=== PATIENT | female | born 1975 | race Caucasian/White ===

== ENCOUNTER 2017-08-31 07:29 | Emergency (ER) | payer OTHER, MEDICAID ==
[~2017-08-31] VITALS: Ht 154.9 cm; Wt 71.7 kg
[~2017-08-31 07:29] MED LIST: ALBU6.7H INH; PRED20 PO; ZITH250T PO
[2017-08-31 07:30] VITALS: BP 129/84; PULSE 80; RESP 16; TEMP 97.8; O2SAT 98
[2017-08-31] MEDS ORDERED: IOHEXOL 350 MG/ML 10 ML VIAL (for RAD DIAG) IVCONTRAST ONE (07:30)
[2017-08-31] MEDS ORDERED: SODIUM CHLORIDE 0.9% FLUSH 10 ML FLUSH IV FLUSH PRN (07:45)
[2017-08-31] MEDS ORDERED: ONDANSETRON HCL 4 MG/2 ML VIAL IVP ONE (07:45)
[2017-08-31] MEDS ORDERED: KETOROLAC TROMETHAMINE 30 MG/ML (IVP) VIAL IVP ONE (07:45)
[2017-08-31] MEDS ORDERED: SODIUM CHLOR 0.9% 1000 ML INJ 1,000 ML IV SCH (07:45)
[2017-08-31] MEDS ORDERED: CEPH-459 PO (07:49)
[2017-08-31] MEDS ORDERED: birth control (07:49)
--- NOTE | 2017-08-31 07:52 | PD ---
HPI Chief Complaint: Musculoskeletal Complaint Time Seen by Provider: 07:35 Travel History International Travel<30 days: No Contact w/Intl Traveler<30days: No Traveled to known affect area: No History of Present Illness HPI The patient is a 41-year-old female who presents to the emergency department for left lower quadrant pain and left groin pain of several days' duration. The patient states she underwent bladder surgery with a sling that was performed at the [facility] at the end of July. The patient states they went through her section scar, she currently has packing in place and has been treated with Keflex. The patient also saw her ap operator, Dr. Webb, in the middle of August and the patient apparently had a normal gynecologic exam. The patient states she was walking around [place] several days ago when she developed left lower quadrant pain. However, the pain is intermittent, can be present at rest as well as when she rolls onto her left side. She did complain of nausea with the pain but denies any vomiting. She did have an episode of diarrhea yesterday which she describes as loose. She denies any dysuria, frequency, urgency, vaginal discharge, or vaginal bleeding. The patient has a history of tubal ligation and denies . She denies any significant redness around the packing site and denies any significant increase in drainage. Symptoms are moderate, there are no current alleviating or exacerbating factors. She also states she can move her left lower extremity at rest and this does not exacerbate her pain. PFSH Past Medical History Asthma: Yes ( A CHILD) Diabetes: No Diminished Hearing: No Genitourinary: Yes (POLYCYSTIC KIDNEYS, UTI'S, KIDNEY STONES) Immunizations Current: Yes ?: Not LMP: 08/21/17 : 1 Para: 1 Ovarian Cysts: Yes Past Surgical History Appendectomy: Yes (2004) Section: Yes Genitourinary Surgery: Yes (bladder sling 07/21) Gynecologic Surgery: Yes () Oral Surgery: Yes (WISDOM TEETH) Social History Alcohol Use: Yes () Tobacco Use: Yes (1 pack every 2 weeks) Substance Use: No Allergies-Medications (Allergen,Severity, Reaction): Coded Allergies: hydrocodone (Unverified Allergy, Severe, ITCHING, 08/31/17) Reported Meds & Prescriptions Reported Meds & Active Scripts Active Reported Keflex (Cephalexin) 250 Mg Cap 250 Mg PO Q6H [ control] Review of Systems Except as stated in HPI: all other systems reviewed are Neg General / Constitutional: No: Fever, Chills Gastrointestinal: Positive: Nausea, Diarrhea, Abdominal Pain, No: Vomiting Genitourinary: Positive: Pelvic Pain, No: Urgency, Frequency, Dysuria, Hematuria, Discharge, Vaginal Bleeding Physical Exam Narrative GENERAL: Awake, alert, pleasant 41-year-old female who appears her stated age and is in no acute respiratory distress. SKIN: Focused skin assessment warm/dry. HEAD: Atraumatic. Normocephalic. EYES: Pupils equal and round. No scleral icterus. No injection or drainage. ENT: No nasal bleeding or discharge. Mucous membranes pink and moist. NECK: Trachea midline. No JVD. CARDIOVASCULAR: Regular rate and rhythm. No murmur appreciated. RESPIRATORY: No accessory muscle use. Clear to auscultation. Breath sounds equal bilaterally. GASTROINTESTINAL: Exam was performed in the presence of a female nurse. Abdomen soft, mild tenderness left lower quadrant but no guarding or rigidity. Midline scar noted with packing in place but no surrounding erythema or drainage noted. No palpable abscess or large seroma/hematoma. No significant left inguinal lymphadenopathy noted on palpation. MUSCULOSKELETAL: No obvious deformities. No clubbing. No cyanosis. No edema. NEUROLOGICAL: Awake and alert. No obvious cranial nerve deficits. Motor grossly within normal limits. Normal speech. PSYCHIATRIC: Appropriate mood and affect; insight and judgment normal. Data Data Last Documented VS Vital Signs Date Time Temp Pulse Resp B/P (MAP) Pulse Ox O2 Delivery O2 Flow Rate FiO2 08/31/17 09:00 74 16 135/76 (95) 98 Room Air 08/31/17 07:30 97.8 Orders Orders Complete Blood Count With Diff (08/31/17 07:45) Comprehensive Metabolic Panel (08/31/17 07:45) Urinalysis - C+S If Indicated (08/31/17 07:45) Ct Abd/Pel W Iv Contrast(Rout) (08/31/17 07:45) Iv Access Insert/Monitor (08/31/17 07:45) Ecg Monitoring (08/31/17 07:45) Oximetry (08/31/17 07:45) Ondansetron Inj (Zofran Inj) (08/31/17 07:45) Sodium Chlor 0.9% 1000 Ml Inj (Ns 1000 M (08/31/17 07:45) Sodium Chloride 0.9% Flush (Ns Flush) (08/31/17 07:45) Ketorolac Inj (Toradol Inj) (08/31/17 07:45) Ed Urine Pregnancytest Poc (08/31/17 07:45) Urine Culture (08/31/17 08:06) Iohexol 350 Inj (Omnipaque 350 Inj) (08/31/17 07:30) Labs Laboratory Tests Test 08/31/17 08:06 White Blood Count 4.8 TH/MM3 Red Blood Count 3.94 MIL/MM3 Hemoglobin 11.6 GM/DL Hematocrit 35.4 % Mean Corpuscular Volume 89.8 FL Mean Corpuscular Hemoglobin 29.3 PG Mean Corpuscular Hemoglobin Concent 32.7 % Red Cell Distribution Width 11.7 % Platelet Count 255 TH/MM3 Mean Platelet Volume 9.1 FL Neutrophils (%) (Auto) 54.4 % Lymphocytes (%) (Auto) 34.0 % Monocytes (%) (Auto) 7.4 % Eosinophils (%) (Auto) 3.3 % Basophils (%) (Auto) 0.9 % Neutrophils # (Auto) 2.6 TH/MM3 Lymphocytes # (Auto) 1.6 TH/MM3 Monocytes # (Auto) 0.4 TH/MM3 Eosinophils # (Auto) 0.2 TH/MM3 Basophils # (Auto) 0.0 TH/MM3 CBC Comment DIFF FINAL Differential Comment Urine Color YELLOW Urine Turbidity CLEAR Urine pH 7.5 Urine Specific [place] 1.019 Urine Protein NEG mg/dL Urine Glucose (UA) NEG mg/dL Urine Ketones NEG mg/dL Urine Occult Blood NEG Urine Nitrite NEG Urine Bilirubin NEG Urine Leukocyte Esterase SMALL Urine RBC 0-3 /hpf Urine WBC 9-14 /hpf Urine Squamous Epithelial Cells 0-5 /hpf Urine Bacteria FEW /hpf Microscopic Urinalysis Comment CULTURE INDICATED Blood Urea Nitrogen 16 MG/DL Creatinine 0.74 MG/DL Random Glucose 90 MG/DL Total Protein 6.7 GM/DL Albumin 3.3 GM/DL Calcium Level 8.7 MG/DL Alkaline Phosphatase 65 U/L Aspartate Amino Transf (AST/SGOT) 13 U/L Alanine Aminotransferase (ALT/SGPT) 18 U/L Total Bilirubin 0.3 MG/DL Sodium Level 138 MEQ/L Potassium Level 4.1 MEQ/L Chloride Level 107 MEQ/L Carbon Dioxide Level 25.2 MEQ/L Anion Gap 6 MEQ/L Estimat Glomerular Filtration Rate 87 ML/MIN [facility] Medical Decision Making Medical Screen Exam Complete: Yes Emergency Medical Condition: Yes Medical Record Reviewed: Yes Interpretation(s) Last Impressions Abdomen/Pelvis CT 08/31/17 0745 Signed Impressions: Service Date/Time: August 08:17 - CONCLUSION: 1. Innumerable hepatic and renal cortical cyst the bilateral renal enlargement characteristic of polycystic kidney disease. 2. 2 nonobstructing calculi in the right renal collecting system. The largest at the junction of the mid and lower pole measure 6 mm in diameter. 3. Radiopaque density traversing the right para midline subcutaneous tissues of the lower abdomen just above the pubic symphysis. There are regional inflammatory changes around the density and this may represent postoperative packing. Please correlate with clinical history. 4. Otherwise, no acute intraperitoneal or pelvic process to explain current clinical symptoms. Real Negro MD Laboratory Tests Test 08/31/17 08:06 White Blood Count 4.8 TH/MM3 Red Blood Count 3.94 MIL/MM3 Hemoglobin 11.6 GM/DL Hematocrit 35.4 % Mean Corpuscular Volume 89.8 FL Mean Corpuscular Hemoglobin 29.3 PG Mean Corpuscular Hemoglobin Concent 32.7 % Red Cell Distribution Width 11.7 % Platelet Count 255 TH/MM3 Mean Platelet Volume 9.1 FL Neutrophils (%) (Auto) 54.4 % Lymphocytes (%) (Auto) 34.0 % Monocytes (%) (Auto) 7.4 % Eosinophils (%) (Auto) 3.3 % Basophils (%) (Auto) 0.9 % Neutrophils # (Auto) 2.6 TH/MM3 Lymphocytes # (Auto) 1.6 TH/MM3 Monocytes # (Auto) 0.4 TH/MM3 Eosinophils # (Auto) 0.2 TH/MM3 Basophils # (Auto) 0.0 TH/MM3 CBC Comment DIFF FINAL Differential Comment Urine Color YELLOW Urine Turbidity CLEAR Urine pH 7.5 Urine Specific [place] 1.019 Urine Protein NEG mg/dL Urine Glucose (UA) NEG mg/dL Urine Ketones NEG mg/dL Urine Occult Blood NEG Urine Nitrite NEG Urine Bilirubin NEG Urine Leukocyte Esterase SMALL Urine RBC 0-3 /hpf Urine WBC 9-14 /hpf Urine Squamous Epithelial Cells 0-5 /hpf Urine Bacteria FEW /hpf Microscopic Urinalysis Comment CULTURE INDICATED Blood Urea Nitrogen 16 MG/DL Creatinine 0.74 MG/DL Random Glucose 90 MG/DL Total Protein 6.7 GM/DL Albumin 3.3 GM/DL Calcium Level 8.7 MG/DL Alkaline Phosphatase 65 U/L Aspartate Amino Transf (AST/SGOT) 13 U/L Alanine Aminotransferase (ALT/SGPT) 18 U/L Total Bilirubin 0.3 MG/DL Sodium Level 138 MEQ/L Potassium Level 4.1 MEQ/L Chloride Level 107 MEQ/L Carbon Dioxide Level 25.2 MEQ/L Anion Gap 6 MEQ/L Estimat Glomerular Filtration Rate 87 ML/MIN Differential Diagnosis Differential diagnosis includes postoperative abscess, ovarian cyst, ovarian torsion, pyelonephritis, nephrolithiasis, diverticulitis, colitis, inguinal strain, femoral hernia. Narrative Course IV was established, labs are drawn and sent, and the patient was placed on cardiac telemetry monitoring and continuous pulse oximetry monitoring. The patient was administered Toradol, Zofran, and IV fluids. Bedside UA test was obtained and UA was sent to lab. CT of the abdomen and pelvis with IV contrast was obtained to rule out postoperative abscess. Bedside UA test was negative. UA reveals 14 wbc's and leukocyte esterase, patient will be treated for possible UTI. The patient's white count is unremarkable. CT the abdomen and pelvis reveals polycystic kidney disease and packing in place in the midline just above the pelvis. There are no significant inflammatory changes noted on the skin or erythema noted around the packing. I had a discussion with the patient regarding polycystic kidney disease, she has a known history of polycystic kidney disease. Other possibilities of the patient' s pain could be ovarian cyst versus mittelschmerz. The patient will be treated with Bactrim for 3 days for possible underlying UTI. She will be provided a copy of her CT results and lab results at discharge. She is advised to follow- up with her primary physician as well as her surgeons at the [facility]. Return if symptoms worsen or progress. Diagnosis Primary Impression: Abdominal pain Qualified Codes: R10.32 - Left lower quadrant pain Additional Impression: UTI (urinary tract infection) Qualified Codes: N30.00 - Acute cystitis without hematuria Patient Instructions: General Instructions Additional Instructions: Bactrim as directed for 3 days. Please provide the patient a copy of her CT results and lab results at discharge. Follow-up with your primary physician and your surgeon at the [facility]. Return if symptoms worsen or progress. Med/Other Pt SpecificInfo: Prescription(s) given Scripts Sulfamethoxazole-Trimethoprim (Bactrim DS) 800-160 Mg Tab 1 TAB PO BID for Infection, #6 TAB 0 Refills Prov: Diego Mcelroy MD 08/31/17 Disposition: DISCHARGE HOME Condition: Stable Diego Mcelroy MD Aug 31, 2017 07:52
[2017-08-31 08:11] LABS: AUTOMATED NEUTROPHIL # 2.6 TH/MM3 (1.8-7.7); BASOPHIL % 0.9 % (0.0-2.0); EOSINOPHIL # 0.2 TH/MM3 (0-0.4); EOSINOPHIL % 3.3 % (0.0-4.0); HEMATOCRIT 35.4 % (35.0-46.0); HEMOGLOBIN 11.6 GM/DL (11.6-15.3); LYMPHOCYTE # 1.6 TH/MM3 (1.0-4.8); MEAN CELL VOLUME 89.8 FL (80.0-100.0); MEAN CORPUSCULAR HEMOGLOBIN 29.3 PG (27.0-34.0); MEAN CORPUSCULAR HGB CONC 32.7 % (32.0-36.0); MEAN PLATELET VOLUME 9.1 FL (7.0-11.0); MONO % 7.4 % (0.0-8.0); MONOCYTE # 0.4 TH/MM3 (0-0.9); NEUT % 54.4 % (16.0-70.0); PLATELET COUNT 255 TH/MM3 (150-450); RED BLOOD COUNT 3.94 MIL/MM3 (4.00-5.30); RED CELL DISTRIBUTION WIDTH 11.7 % (11.6-17.2); WHITE BLOOD COUNT 4.8 TH/MM3 (4.0-11.0)
[2017-08-31 08:22] LABS: BILIRUBIN, URINE NEG (NEG); BLOOD, URINE NEG (NEG); GLUCOSE,URINE NEG (NEG); KETONE, URINE NEG (NEG); NITRITE,URINE NEG (NEG); PH, URINE 7.5 (5.0-8.5); URINE LEUKOCYTE ESTERASE SMALL (NEG)
[2017-08-31 08:26] LABS: CHLORIDE 107 MEQ/L (98-107); SODIUM (NA) 138 MEQ/L (136-145)
[2017-08-31 08:27] LABS: URINE COLOR YELLOW (YELLW/STRAW)
[2017-08-31 08:28] LABS: BACTERIA, URINE FEW /hpf; RBC, URINE 0-3 /hpf (0-3); SQUAMOUS EPITHELIAL CELL URINE 0-5 /hpf (0-5)
[2017-08-31 08:29] LABS: CALCIUM 8.7 MG/DL (8.5-10.1)
[2017-08-31 08:30] LABS: ALBUMIN 3.3 GM/DL (3.4-5.0); BICARBONATE 25.2 MEQ/L (21.0-32.0); BLOOD UREA NITROGEN 16 MG/DL (7-18); GLUCOSE,RANDOM 90 MG/DL (74-106)
[2017-08-31 08:33] LABS: ALT (GPT) 18 U/L (10-53); AST (GOT) 13 U/L (15-37); CREATININE 0.74 MG/DL (0.50-1.00); GLOMERULAR FILTRATION RATE 87 ML/MIN (>89)
[2017-08-31 08:35] LABS: TOTAL BILIRUBIN ADULT 0.3 MG/DL (0.2-1.0); TOTAL PROTEIN 6.7 GM/DL (6.4-8.2)
[2017-08-31 08:36] LABS: ALKALINE PHOSPHATASE 65 U/L (45-117)
--- NOTE | 2017-08-31 08:57 | RADRPT ---
EXAM DATE/TIME: 08/31/2017 08:17 [facility] COMPARISON: No previous studies available for comparison. INDICATIONS : Left lower quadrant pain, recent bladder surgery. IV CONTRAST: 90 cc Omnipaque 350 (iohexol) IV ORAL CONTRAST: No oral contrast ingested. RADIATION DOSE: 8.97 CTDIvol (mGy) MEDICAL HISTORY : Renal calculi. Polycystic kidney disease, ovarian cysts. SURGICAL HISTORY : Appendectomy. section.Tubal ligation.Bladder surgery with sling. ENCOUNTER: Initial ACUITY: 4 - 6 days PAIN SCALE: 4/10 LOCATION: Left lower quadrant TECHNIQUE: Volumetric scanning of the abdomen and pelvis was performed. Using automated exposure control and ad justment of the mA and/or kV according to patient size, radiation dose was kept as low as reasonably achievable to obtain optimal diagnostic quality images. DICOM format image data is available electro nically for review and comparison. FINDINGS: LOWER LUNGS: The visualized lower lungs are clear. LIVER: Innumerable cysts throughout the hepatic parenchyma. There is no dilation of the biliary tree. No c alcified gallstones. SPLEEN: Normal size without lesion. PANCREAS: Within normal limits. KIDNEYS: Both kidneys are enlarged with multiple bilateral cortical cysts. Nonobstructing calculi are seen in the right renal collecting system the largest measuring approximately 6 mm midpole. There is no mass or hydronephrosis. ADRENAL GLANDS: Within normal limits. VASCULAR: There is no aortic aneurysm. BOWEL/MESENTERY: The stomach, small bowel, and colon demonstrate no acute abnormality. There is no free intraperitone al air or fluid. ABDOMINAL WALL: Radiodense material traverses the subcutaneous tissues of the lower right para midline abdomen just a franc the pubic symphysis and extends to the skin surface. There are regional inflammatory changes and this is felt to be postoperative packing. RETROPERITONEUM: There is no lymphadenopathy. BLADDER: No wall thickening or mass. REPRODUCTIVE: Within normal limits. INGUINAL: There is no lymphadenopathy or hernia. MUSCULOSKELETAL: Within normal limits for patient age. CONCLUSION: 1. Innumerable hepatic and renal cortical cyst the bilateral renal enlargement characteristic of poly cystic kidney disease. 2. 2 nonobstructing calculi in the right renal collecting system. The largest at the junction of the mid and lower pole measure 6 mm in diameter. 3. Radiopaque density traversing the right para midline subcutaneous tissues of the lower abdomen jus t above the pubic symphysis. There are regional inflammatory changes around the density and this may represent postoperative packing. Please correlate with clinical history. 4. Otherwise, no acute intraperitoneal or pelvic process to explain current clinical symptoms. Real Negro MD on August 31, 2017 at 8:47 Board Certified Radiologist. This report was verified electronically.
[2017-08-31 08:58] VITALS: O2SAT 98
[2017-08-31 09:00] VITALS: BP 135/76; PULSE 74; RESP 16; O2SAT 98
[2017-08-31] MEDS ORDERED: BACT800T5 PO (09:12)
== END 2017-08-31 09:26 | disposition home or self-care (01) ==
LOC: PHED 07:29
DX: R10.32 Left lower quadrant pain (principal); N30.00 Acute cystitis without hematuria; R19.7 Diarrhea, unspecified; R11.0 Nausea; Z72.0 Tobacco use
CPT/HCPCS: 74177; 80053; 81001; 84703; 85025; 87086; 96361; 96374; 96375; 99285; J1885; J2405; J7030; Q9967

== ENCOUNTER 2018-01-06 18:56 | Emergency (ER) | payer MEDICAID, OTHER ==
[~2018-01-06] VITALS: Ht 154.9 cm; Wt 71.8 kg
[~2018-01-06 18:56] MED LIST changes: -ALBU6.7H INH; +BACT800T5 PO; +CEPH-459 PO; -PRED20 PO; -ZITH250T PO; +birth control
[2018-01-06 18:59] VITALS: BP 178/103; PULSE 67; RESP 18; TEMP 97.8; O2SAT 99
[2018-01-06] MEDS ORDERED: SUMA100T2 PO (19:18)
[2018-01-06] MEDS ORDERED: DIFL150T PO (19:18)
[2018-01-06] MEDS ORDERED: METR-1 PO (19:18)
[2018-01-06] MEDS ORDERED: DULO1CAP2 PO (19:18)
[2018-01-06] MEDS ORDERED: TRINTAB7 PO (19:18)
[2018-01-06 19:26] VITALS: PULSE 77; O2SAT 100
[2018-01-06] MEDS ORDERED: SODIUM CHLOR 0.9% 1000 ML INJ 1,000 ML IV ONE (19:55)
--- NOTE | 2018-01-06 19:55 | PD ---
HPI Chief Complaint: Headache Time Seen by Provider: 19:39 Travel History International Travel<30 days: No Contact w/Intl Traveler<30days: No Traveled to known affect area: No History of Present Illness HPI The patient is a 42-year-old female that states she has had headaches for 5 years. She recently saw Dr. Hill and a CT of the brain was recommended. She has not done this yet. She denies any fever, vomiting but does have nausea and photophobia/phonophobia. She claims a headache is a 10/10. The headache is bilateral, mainly bifrontal and of gradual onset. She denies any focal neurologic change. She denies any fever. She was given sumatriptan and and took that at 3:00 this morning and 11:00 this morning but this has not helped. She states there is no possibility of . She takes control pills for her cyst and has had a tubal ligation. She also states she is on her menstrual period. She states she has been on her control pills for 4 years and cannot make any connection between her headaches and the control pills. [facility] Past Medical History Asthma: Yes ( A CHILD) Diabetes: No Diminished Hearing: No Genitourinary: Yes (POLYCYSTIC KIDNEYS, UTI'S, KIDNEY STONES) Immunizations Current: Yes Migraines: Yes Tetanus Vaccination: < 5 Years Influenza Vaccination: Yes ?: Not LMP: NOW : 2 Para: 2 Ovarian Cysts: Yes Tubal Ligation: Yes (2013) Past Surgical History Appendectomy: Yes (2004) Section: Yes (X2) Genitourinary Surgery: Yes (bladder sling 07/21) Gynecologic Surgery: Yes () Oral Surgery: Yes (WISDOM TEETH) Social History Alcohol Use: Yes (OCCAS) Tobacco Use: Yes (1 pack every 2 weeks) Substance Use: No Allergies-Medications (Allergen,Severity, Reaction): Coded Allergies: hydrocodone (Unverified Allergy, Severe, ITCHING, 01/06/18) Reported Meds & Prescriptions Reported Meds & Active Scripts Active Reported Diflucan (Fluconazole) 150 Mg Tab 150 Mg PO ONCE Flagyl (Metronidazole) 500 Mg Tab 500 Mg PO BID Trinessa (Norgestimate-Ethinyl Estradiol) 0.18/0.215/0.25 mg-35 Mcg Tab 1 Tab PO DAILY Duloxetine DR (Duloxetine HCl) 30 Mg Capdr 30 Mg PO DAILY Sumatriptan (Sumatriptan Succinate) 100 Mg Tab 100 Mg PO BID If a satisfactory response has not been obtained at 2 hours, a second dose may be administered Review of Systems Except as stated in HPI: all other systems reviewed are Neg Physical Exam Narrative GENERAL: The patient is alert, oriented 3 in moderate apparent distress with her bifrontal headache. Her vital signs show blood pressure 178/103 but are otherwise normal. SKIN: Focused skin assessment warm/dry. HEAD: Atraumatic. Normocephalic. EYES: Pupils equal and round. No scleral icterus. No injection or drainage. The fundi appear sharp and venous pulsations are seated in the upright position. ENT: No nasal bleeding or discharge. Mucous membranes pink and moist. NECK: Trachea midline. No JVD. The patient has no meningismus that can flex neck fully so that the chin touches the chest. CARDIOVASCULAR: Regular rate and rhythm. No murmur appreciated. RESPIRATORY: No accessory muscle use. Clear to auscultation. Breath sounds equal bilaterally. GASTROINTESTINAL: Abdomen soft, non-tender, nondistended. Hepatic and splenic margins not palpable. MUSCULOSKELETAL: No obvious deformities. No clubbing. No cyanosis. No edema. NEUROLOGICAL: Awake and alert. No obvious cranial nerve deficits. Motor grossly within normal limits. Normal speech. PSYCHIATRIC: Appropriate mood and affect; insight and judgment normal. Data Data Last Documented VS Vital Signs Date Time Temp Pulse Resp B/P (MAP) Pulse Ox O2 Delivery O2 Flow Rate FiO2 01/06/18 20:34 61 16 147/81 (103) 100 Room Air 01/06/18 18:59 97.8 Orders Orders Complete Blood Count With Diff (01/06/18 19:55) Comprehensive Metabolic Panel (01/06/18 19:55) Ct Brain W/O Iv Contrast(Rout) (01/06/18 19:55) Ecg Monitoring (01/06/18 19:55) Iv Access Insert/Monitor (01/06/18 19:55) Oximetry (01/06/18 19:55) Sodium Chloride 0.9% Flush (Ns Flush) (01/06/18 20:00) Ketorolac Inj (Toradol Inj) (01/06/18 20:00) Prochlorperazine Inj (Compazine Inj) (01/06/18 20:00) Diphenhydramine Inj (Benadryl Inj) (01/06/18 20:00) Sodium Chlor 0.9% 1000 Ml Inj (Ns 1000 M (01/06/18 19:55) Labs Laboratory Tests Test 01/06/18 19:54 White Blood Count 7.6 TH/MM3 Red Blood Count 4.36 MIL/MM3 Hemoglobin 13.0 GM/DL Hematocrit 38.0 % Mean Corpuscular Volume 87.1 FL Mean Corpuscular Hemoglobin 29.9 PG Mean Corpuscular Hemoglobin Concent 34.3 % Red Cell Distribution Width 12.1 % Platelet Count 234 TH/MM3 Mean Platelet Volume 9.7 FL Neutrophils (%) (Auto) 58.5 % Lymphocytes (%) (Auto) 28.1 % Monocytes (%) (Auto) 8.0 % Eosinophils (%) (Auto) 2.7 % Basophils (%) (Auto) 2.7 % Neutrophils # (Auto) 4.5 TH/MM3 Lymphocytes # (Auto) 2.1 TH/MM3 Monocytes # (Auto) 0.6 TH/MM3 Eosinophils # (Auto) 0.2 TH/MM3 Basophils # (Auto) 0.2 TH/MM3 CBC Comment DIFF FINAL Differential Comment Blood Urea Nitrogen 15 MG/DL Creatinine 0.88 MG/DL Random Glucose 103 MG/DL Total Protein 7.0 GM/DL Albumin 3.4 GM/DL Calcium Level 9.1 MG/DL Alkaline Phosphatase 68 U/L Aspartate Amino Transf (AST/SGOT) 12 U/L Alanine Aminotransferase (ALT/SGPT) 16 U/L Total Bilirubin 0.3 MG/DL Sodium Level 140 MEQ/L Potassium Level 4.0 MEQ/L Chloride Level 106 MEQ/L Carbon Dioxide Level 29.2 MEQ/L Anion Gap 5 MEQ/L Estimat Glomerular Filtration Rate 71 ML/MIN [facility] Medical Decision Making Medical Screen Exam Complete: Yes Emergency Medical Condition: Yes Medical Record Reviewed: Yes Interpretation(s) The CBC is normal. The complete metabolic profile shows a GFR of 71 but is otherwise unremarkable. The CT brain shows no acute disease. Differential Diagnosis Migraine headache, tension headache, tension/migraine combination headache, cluster headache, subarachnoid hemorrhage-highly unlikely Narrative Course The patient likely has a tension/migraine combination headache. She should follow-up next week with a neurologist. She is given the laboratory results/ imaging that we did tonight. She will be given a prescription for Fioricet. It is now 8:45 PM and the patient's headache is completely resolved. Diagnosis Primary Impression: Recurrent headache Additional Instructions: As we discussed, he will likely need to see a neurologist next week. Take the laboratory/imaging results that we gave you to his office. The Fioricet is 1 or 2 capsules every 6 hours as needed for headache. Ibuprofen and Benadryl also appeared to work for this headache. Med/Other Pt SpecificInfo: Prescription(s) given Scripts Pwkhhcocdy-Tizbxadradusm-Upafhrcf (Fioricet) 50-300-40 Mg Cap 1-2 CAP PO Q6H Y for HEADACHE, #30 CAP 0 Refills Prov: Santiago Boone MD 01/06/18 Disposition: 01 DISCHARGE HOME Condition: Stable Santiago Boone MD January 06, 2018 19:55
[2018-01-06] MEDS ORDERED: diphenhydrAMINE HCL 50 MG/ML VIAL IVP ONE (20:00)
[2018-01-06] MEDS ORDERED: KETOROLAC TROMETHAMINE 30 MG/ML (IVP) VIAL IVP ONE (20:00)
[2018-01-06] MEDS ORDERED: SODIUM CHLORIDE 0.9% FLUSH 10 ML FLUSH IVF PRN (20:00)
[2018-01-06] MEDS ORDERED: PROCHLORPERAZINE INJ 10 MG/2 ML VIAL IVP ONE (20:00)
[2018-01-06 20:19] LABS: AUTOMATED NEUTROPHIL # 4.5 TH/MM3 (1.8-7.7); BASOPHIL # 0.2 TH/MM3 (0-0.2); BASOPHIL % 2.7 % (0.0-2.0); EOSINOPHIL # 0.2 TH/MM3 (0-0.4); EOSINOPHIL % 2.7 % (0.0-4.0); LYMPH % 28.1 % (9.0-44.0); LYMPHOCYTE # 2.1 TH/MM3 (1.0-4.8); MEAN CELL VOLUME 87.1 FL (80.0-100.0); MEAN CORPUSCULAR HEMOGLOBIN 29.9 PG (27.0-34.0); MEAN CORPUSCULAR HGB CONC 34.3 % (32.0-36.0); MEAN PLATELET VOLUME 9.7 FL (7.0-11.0); MONOCYTE # 0.6 TH/MM3 (0-0.9); NEUT % 58.5 % (16.0-70.0); PLATELET COUNT 234 TH/MM3 (150-450); RED BLOOD COUNT 4.36 MIL/MM3 (4.00-5.30); RED CELL DISTRIBUTION WIDTH 12.1 % (11.6-17.2); WHITE BLOOD COUNT 7.6 TH/MM3 (4.0-11.0)
[2018-01-06 20:26] LABS: CHLORIDE 106 MEQ/L (98-107); SODIUM (NA) 140 MEQ/L (136-145)
[2018-01-06 20:29] LABS: ALBUMIN 3.4 GM/DL (3.4-5.0); BICARBONATE 29.2 MEQ/L (21.0-32.0); CALCIUM 9.1 MG/DL (8.5-10.1); GLUCOSE,RANDOM 103 MG/DL (74-106)
[2018-01-06 20:30] LABS: BLOOD UREA NITROGEN 15 MG/DL (7-18)
[2018-01-06 20:32] LABS: ALT (GPT) 16 U/L (10-53); AST (GOT) 12 U/L (15-37)
--- NOTE | 2018-01-06 20:32 | RADRPT ---
EXAM DATE/TIME: 01/06/2018 20:21 [facility] COMPARISON: No previous studies available for comparison. INDICATIONS : Cephalgia and nausea x 2 days. RADIATION DOSE: 46.83 CTDIvol (mGy) MEDICAL HISTORY : Renal calculi. Polycystic renal disease. SURGICAL HISTORY : section. Appendectomy. ENCOUNTER: Initial ACUITY: 2 days PAIN SCALE: 7/10 LOCATION: cranial TECHNIQUE: Multiple contiguous axial images were obtained of the head. Using automated exposure control and adj ustment of the mA and/or kV according to patient size, radiation dose was kept as low as reasonably a chievable to obtain optimal diagnostic quality images. DICOM format image data is available electro nically for review and comparison. FINDINGS: CEREBRUM: The ventricles are normal for age. No evidence of midline shift, mass lesion, hemorrhage or acute in farction. No extra-axial fluid collections are seen. POSTERIOR FOSSA: The cerebellum and brainstem are intact. The 4th ventricle is midline. The cerebellopontine angle i s unremarkable. EXTRACRANIAL: The visualized portion of the orbits is intact. SKULL: The calvaria is intact. No evidence of skull fracture. CONCLUSION: No acute disease. Eyad Arvizu MD on January 06, 2018 at 20:29 Board Certified Radiologist. This report was verified electronically.
[2018-01-06 20:33] LABS: CREATININE 0.88 MG/DL (0.50-1.00); GLOMERULAR FILTRATION RATE 71 ML/MIN (>89)
[2018-01-06 20:34] VITALS: BP 147/81; PULSE 61; RESP 16; O2SAT 100
[2018-01-06 20:34] LABS: TOTAL BILIRUBIN ADULT 0.3 MG/DL (0.2-1.0)
[2018-01-06 20:35] LABS: ALKALINE PHOSPHATASE 68 U/L (45-117)
[2018-01-06] MEDS ORDERED: BUTA1CAP PO (20:42)
== END 2018-01-06 21:18 | disposition home or self-care (01) ==
LOC: PHED 18:56
DX: R51 Headache (principal); Q61.3 Polycystic kidney, unspecified; F17.200 Nicotine dependence, unspecified, uncomplicated
CPT/HCPCS: 70450; 80053; 85025; 96361; 96374; 96375; 99284; J0780; J1200; J1885; J7030

== ENCOUNTER 2018-01-17 16:50 | Emergency (ER) | payer OTHER ==
[~2018-01-17] VITALS: Ht 154.9 cm; Wt 70.0 kg
[~2018-01-17 16:50] MED LIST changes: -BACT800T5 PO; +BUTA1CAP PO; -CEPH-459 PO; +DIFL150T PO; +DULO1CAP2 PO; +METR-1 PO; +SUMA100T2 PO; +TRINTAB7 PO; -birth control
[2018-01-17 16:53] VITALS: BP 134/77; PULSE 118; RESP 16; TEMP 100.3; O2SAT 98
[2018-01-17] MEDS ORDERED: PANT20 PO (17:02)
[2018-01-17] MEDS ORDERED: SODIUM CHLOR 0.9% 1000 ML INJ 1,000 ML IV SCH (17:03)
--- NOTE | 2018-01-17 17:09 | PD ---
HPI Chief Complaint: GI Complaint Time Seen by Provider: 16:56 Travel History International Travel<30 days: No Contact w/Intl Traveler<30days: No Traveled to known affect area: No History of Present Illness HPI The patient is a 42-year-old female who presents emergency department for nausea, diarrhea, abdominal pain, and body aches. The patient states her symptoms started earlier today, at [facility], when she developed diarrhea. The patient estimates 10 episodes of loose, watery, brown diarrhea without any visible blood. She then developed some lower abdominal pain and cramping that radiates to the back and into the pelvis. She now complains of body aches, subjective fevers, chills, and intermittent sweats. 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 She denies any sick contacts at home. She did receive an influenza vaccination this year. She denies any recent international travel. She denies any vomiting but does note mild nausea. Symptoms are moderate. She does have a history of polycystic kidney disease. The patient denies any dysuria, frequency , or urgency. The patient does have a history of previous appendectomy, tubal ligation, bladder sling surgery, and section. PFSH Past Medical History Asthma: Yes ( A CHILD) Diabetes: No Diminished Hearing: No Genitourinary: Yes (POLYCYSTIC KIDNEYS, UTI'S, KIDNEY STONES) Immunizations Current: Yes Migraines: Yes Influenza Vaccination: Yes ?: Not LMP: 2 WEEKS : 2 Para: 2 Ovarian Cysts: Yes Tubal Ligation: Yes (2013) Past Surgical History Appendectomy: Yes (2004) Section: Yes (X2) Genitourinary Surgery: Yes (bladder sling 07/21) Gynecologic Surgery: Yes () Oral Surgery: Yes (WISDOM TEETH) Social History Alcohol Use: Yes (OCCAS) Tobacco Use: No Substance Use: No Allergies-Medications (Allergen,Severity, Reaction): Coded Allergies: hydrocodone (Unverified Allergy, Severe, ITCHING, 01/17/18) Reported Meds & Prescriptions Reported Meds & Active Scripts Active Fioricet (Ernmnxmdsa-Eqnpveekzjmub-Vzeclmje) 50-300-40 Mg Cap 1-2 Cap PO Q6H PRN Reported Protonix (Pantoprazole Sodium) 20 Mg Tab 20 Mg PO DAILY Trinessa (Norgestimate-Ethinyl Estradiol) 0.18/0.215/0.25 mg-35 Mcg Tab 1 Tab PO DAILY Sumatriptan (Sumatriptan Succinate) 100 Mg Tab 100 Mg PO BID If a satisfactory response has not been obtained at 2 hours, a second dose may be administered Review of Systems Except as stated in HPI: all other systems reviewed are Neg General / Constitutional: Positive: Fever, Chills Cardiovascular: No: Chest Pain or Discomfort Respiratory: No: Shortness of Breath Gastrointestinal: Positive: Nausea, Diarrhea, Abdominal Pain, No: Vomiting Genitourinary: No: Dysuria Musculoskeletal: Positive: Myalgias Skin: No Rash Physical Exam Narrative GENERAL: Awake, alert, pleasant 42-year-old female who appears her stated age and is in no acute respiratory distress. SKIN: Focused skin assessment warm/dry. HEAD: Atraumatic. Normocephalic. EYES: Pupils equal and round. No scleral icterus. No injection or drainage. ENT: No nasal bleeding or discharge. Mucous membranes pink and moist. NECK: Trachea midline. No JVD. CARDIOVASCULAR: Regular, tachycardic with a heart rate of 115. RESPIRATORY: No accessory muscle use. Clear to auscultation. Breath sounds equal bilaterally. GASTROINTESTINAL: Abdomen soft, mild suprapubic tenderness and left lower quadrant and right lower quadrant tenderness. Back: No CVA tenderness. MUSCULOSKELETAL: No obvious deformities. No clubbing. No cyanosis. No edema. NEUROLOGICAL: Awake and alert. No obvious cranial nerve deficits. Motor grossly within normal limits. Normal speech. PSYCHIATRIC: Appropriate mood and affect; insight and judgment normal. Data Data Last Documented VS Vital Signs Date Time Temp Pulse Resp B/P (MAP) Pulse Ox O2 Delivery O2 Flow Rate FiO2 01/17/18 18:10 18 01/17/18 17:41 102 138/79 (98) 99 Room Air 01/17/18 16:53 100.3 Orders Orders Complete Blood Count With Diff (01/17/18 17:03) Comprehensive Metabolic Panel (01/17/18 17:03) Lipase (01/17/18 17:03) Lactic Acid (01/17/18 17:03) Urinalysis - C+S If Indicated (01/17/18 17:03) Ct Abd/Pel W Iv Contrast(Rout) (01/17/18 17:03) Iv Access Insert/Monitor (01/17/18 17:03) Ecg Monitoring (01/17/18 17:03) Oximetry (01/17/18 17:03) Sodium Chlor 0.9% 1000 Ml Inj (Ns 1000 M (01/17/18 17:03) Sodium Chloride 0.9% Flush (Ns Flush) (01/17/18 17:15) Ketorolac Inj (Toradol Inj) (01/17/18 17:15) Ondansetron Odt (Zofran Odt) (01/17/18 17:15) Acetaminophen (Tylenol) (01/17/18 17:15) Influenzae A/B Antigen (01/17/18 17:03) Iohexol 350 Inj (Omnipaque 350 Inj) (01/17/18 17:33) Labs Laboratory Tests Test 01/17/18 17:10 01/17/18 17:20 Urine Color YELLOW Urine Turbidity SL CLOUDY Urine pH 5.5 Urine Specific Driver 1.025 Urine Protein NEG mg/dL Urine Glucose (UA) NEG mg/dL Urine Ketones NEG mg/dL Urine Occult Blood SMALL Urine Nitrite NEG Urine Bilirubin NEG Urine Urobilinogen 0.2 MG/DL Urine Leukocyte Esterase NEG Urine RBC 0-3 /hpf Urine WBC 0-2 /hpf Urine Squamous Epithelial Cells 0-5 /hpf Microscopic Urinalysis Comment CULT NOT INDICATED White Blood Count 9.7 TH/MM3 Red Blood Count 4.16 MIL/MM3 Hemoglobin 12.2 GM/DL Hematocrit 36.6 % Mean Corpuscular Volume 88.0 FL Mean Corpuscular Hemoglobin 29.3 PG Mean Corpuscular Hemoglobin Concent 33.3 % Red Cell Distribution Width 11.9 % Platelet Count 184 TH/MM3 Mean Platelet Volume 9.5 FL Neutrophils (%) (Auto) 85.8 % Lymphocytes (%) (Auto) 6.2 % Monocytes (%) (Auto) 4.5 % Eosinophils (%) (Auto) 0.1 % Basophils (%) (Auto) 3.4 % Neutrophils # (Auto) 8.4 TH/MM3 Lymphocytes # (Auto) 0.6 TH/MM3 Monocytes # (Auto) 0.4 TH/MM3 Eosinophils # (Auto) 0.0 TH/MM3 Basophils # (Auto) 0.3 TH/MM3 CBC Comment AUTO DIFF Differential Total Cells Counted 100 Neutrophils % (Manual) 56 % Lymphocytes % 38 % Monocytes % 5 % Eosinophils % 1 % Neutrophils # (Manual) 5.4 TH/MM3 Differential Comment FINAL DIFF MANUAL Platelet Estimate NORMAL Platelet Morphology Comment NORMAL Red Cell Morphology Comment NORMAL Blood Urea Nitrogen 14 MG/DL Creatinine 0.80 MG/DL Random Glucose 103 MG/DL Total Protein 7.1 GM/DL Albumin 3.6 GM/DL Calcium Level 8.6 MG/DL Alkaline Phosphatase 63 U/L Aspartate Amino Transf (AST/SGOT) 12 U/L Alanine Aminotransferase (ALT/SGPT) 22 U/L Total Bilirubin 0.6 MG/DL Sodium Level 136 MEQ/L Potassium Level 3.2 MEQ/L Chloride Level 104 MEQ/L Carbon Dioxide Level 26.1 MEQ/L Anion Gap 6 MEQ/L Estimat Glomerular Filtration Rate 79 ML/MIN Lactic Acid Level 1.0 mmol/L Lipase 109 U/L MDM Medical Decision Making Medical Screen Exam Complete: Yes Emergency Medical Condition: Yes Medical Record Reviewed: Yes Interpretation(s) Date/Time Source Procedure Growth Status 01/17/18 17:15 Nasal Aspirate Influenza Types A,B Antigen (STEVIE) - Final NEGATIVE FOR FLU A AND B ANTIGEN.... Complete CT of the abdomen and pelvis reveals polycystic kidney and liver disease. No etiology for patient's abdominal pain. No evidence of colitis. Laboratory Tests Test 01/17/18 17:10 01/17/18 17:20 Urine Color YELLOW Urine Turbidity SL CLOUDY Urine pH 5.5 Urine Specific Driver 1.025 Urine Protein NEG mg/dL Urine Glucose (UA) NEG mg/dL Urine Ketones NEG mg/dL Urine Occult Blood SMALL Urine Nitrite NEG Urine Bilirubin NEG Urine Urobilinogen 0.2 MG/DL Urine Leukocyte Esterase NEG Urine RBC 0-3 /hpf Urine WBC 0-2 /hpf Urine Squamous Epithelial Cells 0-5 /hpf Microscopic Urinalysis Comment CULT NOT INDICATED White Blood Count 9.7 TH/MM3 Red Blood Count 4.16 MIL/MM3 Hemoglobin 12.2 GM/DL Hematocrit 36.6 % Mean Corpuscular Volume 88.0 FL Mean Corpuscular Hemoglobin 29.3 PG Mean Corpuscular Hemoglobin Concent 33.3 % Red Cell Distribution Width 11.9 % Platelet Count 184 TH/MM3 Mean Platelet Volume 9.5 FL Neutrophils (%) (Auto) 85.8 % Lymphocytes (%) (Auto) 6.2 % Monocytes (%) (Auto) 4.5 % Eosinophils (%) (Auto) 0.1 % Basophils (%) (Auto) 3.4 % Neutrophils # (Auto) 8.4 TH/MM3 Lymphocytes # (Auto) 0.6 TH/MM3 Monocytes # (Auto) 0.4 TH/MM3 Eosinophils # (Auto) 0.0 TH/MM3 Basophils # (Auto) 0.3 TH/MM3 CBC Comment AUTO DIFF Differential Total Cells Counted 100 Neutrophils % (Manual) 56 % Lymphocytes % 38 % Monocytes % 5 % Eosinophils % 1 % Neutrophils # (Manual) 5.4 TH/MM3 Differential Comment FINAL DIFF MANUAL Platelet Estimate NORMAL Platelet Morphology Comment NORMAL Red Cell Morphology Comment NORMAL Blood Urea Nitrogen 14 MG/DL Creatinine 0.80 MG/DL Random Glucose 103 MG/DL Total Protein 7.1 GM/DL Albumin 3.6 GM/DL Calcium Level 8.6 MG/DL Alkaline Phosphatase 63 U/L Aspartate Amino Transf (AST/SGOT) 12 U/L Alanine Aminotransferase (ALT/SGPT) 22 U/L Total Bilirubin 0.6 MG/DL Sodium Level 136 MEQ/L Potassium Level 3.2 MEQ/L Chloride Level 104 MEQ/L Carbon Dioxide Level 26.1 MEQ/L Anion Gap 6 MEQ/L Estimat Glomerular Filtration Rate 79 ML/MIN Lactic Acid Level 1.0 mmol/L Lipase 109 U/L Differential Diagnosis Differential diagnosis includes influenza, colitis, enteritis, gastroenteritis, viral syndrome, food poisoning, dehydration, pyelonephritis, acute kidney injury. Narrative Course IV was established, labs are drawn and sent, and the patient was placed on cardiac telemetry monitoring and continuous pulse oximetry monitoring. The patient was administered Toradol, Tylenol, Zofran, and IV fluids. UA was sent to lab. CT of the abdomen and pelvis was obtained to evaluate for possible colitis. Influenza screen was sent to lab, was negative. UA reveals small amount of blood but no WBCs. The patient's LFTs and lipase are normal. Lactic acid was normal at 1.0. CT reveals polycystic kidney and liver disease but no etiology for patient's abdominal pain and no evidence of colitis. White count is unremarkable. The patient was reevaluated at 6:15 PM, her symptoms have improved. Appears the patient has a viral enteritis/colitis, will be provided a work excuse for 2 days. She is advised to have a bland diet for several days and avoid milk products. [id number] Imodium as needed. Follow-up with a primary physician. She will be provided a copy of her labs and CT results at discharge. Diagnosis Primary Impression: Diarrhea Qualified Codes: R19.7 - Diarrhea, unspecified Additional Impression: Febrile illness Patient Instructions: General Instructions Additional Instructions: Work excuse for 2 days. [id number] Imodium as needed. Plenty of fluids to stay hydrated. Please provide the patient a copy of her labs and CT results at discharge. Follow-up with your primary physician. If your symptoms persist he may need outpatient evaluation by her primary physician and/or gastroenterology with stool samples and studies. Disposition: 01 DISCHARGE HOME Condition: Stable Diego Mcelroy MD January 17, 2018 17:09
[2018-01-17] MEDS ORDERED: ACETAMINOPHEN 325 MG TAB PO ONE (17:15)
[2018-01-17] MEDS ORDERED: SODIUM CHLORIDE 0.9% FLUSH 10 ML FLUSH IV FLUSH PRN (17:15)
[2018-01-17] MEDS ORDERED: KETOROLAC TROMETHAMINE 30 MG/ML (IVP) VIAL IVP ONE (17:15)
[2018-01-17] MEDS ORDERED: ONDANSETRON ODT 4 MG TAB PO ONE (17:15)
[2018-01-17 17:30] LABS: AUTOMATED NEUTROPHIL # 8.4 TH/MM3 (1.8-7.7); BASOPHIL # 0.3 TH/MM3 (0-0.2); BASOPHIL % 3.4 % (0.0-2.0); EOSINOPHIL % 0.1 % (0.0-4.0); HEMATOCRIT 36.6 % (35.0-46.0); HEMOGLOBIN 12.2 GM/DL (11.6-15.3); LYMPH % 6.2 % (9.0-44.0); LYMPHOCYTE # 0.6 TH/MM3 (1.0-4.8); MEAN CORPUSCULAR HEMOGLOBIN 29.3 PG (27.0-34.0); MEAN CORPUSCULAR HGB CONC 33.3 % (32.0-36.0); MEAN PLATELET VOLUME 9.5 FL (7.0-11.0); MONO % 4.5 % (0.0-8.0); MONOCYTE # 0.4 TH/MM3 (0-0.9); NEUT % 85.8 % (16.0-70.0); PLATELET COUNT 184 TH/MM3 (150-450); RED BLOOD COUNT 4.16 MIL/MM3 (4.00-5.30); RED CELL DISTRIBUTION WIDTH 11.9 % (11.6-17.2); WHITE BLOOD COUNT 9.7 TH/MM3 (4.0-11.0)
[2018-01-17 17:32] VITALS: RESP 18; O2SAT 98
[2018-01-17 17:32] LABS: BILIRUBIN, URINE NEG (NEG); BLOOD, URINE SMALL (NEG); GLUCOSE,URINE NEG (NEG); KETONE, URINE NEG (NEG); NITRITE,URINE NEG (NEG); PH, URINE 5.5 (5.0-8.5); URINE COLOR YELLOW (YELLW/STRAW); URINE LEUKOCYTE ESTERASE NEG (NEG)
[2018-01-17] MEDS ORDERED: IOHEXOL 350 MG/ML 10 ML VIAL (for RAD DIAG) IVCONTRAST ONE (17:33)
[2018-01-17 17:37] LABS: RBC, URINE 0-3 /hpf (0-3); SQUAMOUS EPITHELIAL CELL URINE 0-5 /hpf (0-5); WBC, URINE 0-2 /hpf (0-5)
[2018-01-17 17:41] VITALS: BP 138/79; PULSE 102; RESP 18; O2SAT 99
[2018-01-17 17:42] LABS: CHLORIDE 104 MEQ/L (98-107); SODIUM (NA) 136 MEQ/L (136-145)
[2018-01-17 17:46] LABS: ALBUMIN 3.6 GM/DL (3.4-5.0); BICARBONATE 26.1 MEQ/L (21.0-32.0); CALCIUM 8.6 MG/DL (8.5-10.1); GLUCOSE,RANDOM 103 MG/DL (74-106)
[2018-01-17 17:47] LABS: BLOOD UREA NITROGEN 14 MG/DL (7-18); LYMPHOCYTES 38 % (9-44); MONOCYTES 5 % (0-8); POLYS (SEG NEUTROPHILS) 56 % (16-70)
[2018-01-17 17:49] LABS: ALT (GPT) 22 U/L (10-53); AST (GOT) 12 U/L (15-37); GLOMERULAR FILTRATION RATE 79 ML/MIN (>89)
[2018-01-17 17:51] LABS: TOTAL BILIRUBIN ADULT 0.6 MG/DL (0.2-1.0); TOTAL PROTEIN 7.1 GM/DL (6.4-8.2)
[2018-01-17 17:52] LABS: ALKALINE PHOSPHATASE 63 U/L (45-117)
--- NOTE | 2018-01-17 17:53 | RADRPT ---
EXAM DATE/TIME: 01/17/2018 17:28 [facility] COMPARISON: CT ABDOMEN & PELVIS W CONTRAST, August 31, 2017, 8:17. INDICATIONS : Fever, body aches, abdominal pain, and severe diarrhea. IV CONTRAST: 100 cc Omnipaque 350 (iohexol) IV ORAL CONTRAST: No oral contrast ingested. RADIATION DOSE: 9.04 CTDIvol (mGy) MEDICAL HISTORY : Renal calculi. Polycystic kidney disease. SURGICAL HISTORY : Appendectomy. section.Tubal ligation.Bladder sling. ENCOUNTER: Initial ACUITY: 2 days PAIN SCALE: 10/10 LOCATION: abdomen TECHNIQUE: Volumetric scanning of the abdomen and pelvis was performed. Using automated exposure control and ad justment of the mA and/or kV according to patient size, radiation dose was kept as low as reasonably achievable to obtain optimal diagnostic quality images. DICOM format image data is available electro nically for review and comparison. FINDINGS: Minimal bibasilar parenchymal changes Multiple well-circumscribed cyst in both the liver and kidneys consistent with polycystic kidney dise ase. Spleen and pancreas are unremarkable Ligament appear normal There is no free fluid or free air There are no inflammatory changes evident There is good visualization of the colon. I don't see evidence for colitis. In the pelvis small cystic areas are seen in both adnexal regions, largest on the right measuring 1.9 cm. There is no free fluid. The abdominal wall is intact. CONCLUSION: Polycystic kidney and liver disease . I do not see an etiology for patient's abdomin al pain. There is no evidence for colitis. Lance Gleason MD FACR on January 17, 2018 at 17:42 Board Certified Radiologist. This report was verified electronically.
[2018-01-17 18:04] LABS: NEUTROPHIL # MANUAL DIFF 5.4 TH/MM3 (1.8-7.7)
[2018-01-17 18:26] VITALS: BP 119/70; PULSE 106; RESP 18; O2SAT 100
== END 2018-01-17 18:36 | disposition home or self-care (01) ==
LOC: PHED 16:50
DX: R19.7 Diarrhea, unspecified (principal); R50.9 Fever, unspecified; Q61.3 Polycystic kidney, unspecified; K76.9 Liver disease, unspecified; J45.909 Unspecified asthma, uncomplicated; Z88.5 Allergy status to narcotic agent; Z79.899 Other long term (current) drug therapy
CPT/HCPCS: 74177; 80053; 81001; 83605; 83690; 85007; 85027; 87804; 96361; 96374; 99285; J1885; J7030; Q9967